=== PATIENT | male | born 1945 | race Caucasian/White ===

== ENCOUNTER 2020-11-05 10:22 | Inpatient (IN) | payer MEDICARE, OTHER ==
[~2020-11-05] VITALS: Ht 165.1 cm; Wt 73.5 kg
--- NOTE | 2020-11-05 11:10 | NUR ---
oiv from home to er bed 7. awake alert oriented x2. not in resp distress, breathing even and unlabored. brought in for cough, fever qand dizzyness. temp reported by ems 102. md was at the bedside. oral temp noted @ 100.7 orally upon reassessment. md was at the beds-[facility] for eval. orders received, noted and carried out. iv line established on l ac 18g, blood drawn and sent to lab. ptemt at bedside for ekg. pt on monitor
[2020-11-05 11:44] LABS: BASOPHILS % (AUTO) 0.2 % (0.0-2.0); HEMATOCRIT 43 % (39-51); HEMOGLOBIN 14.1 g/dL (13.5-17.5); LYMPHOCYTES # (AUTO) 1.2 /CMM (0.8-4.8); LYMPHOCYTES % (AUTO) 23.9 % (20.0-44.0); MEAN CORPUSCULAR HGB CONC 33 g/dl (31.0-36.0); MEAN CORPUSCULAR VOLUME 88 fL (80-96); MONOCYTES # (AUTO) 0.3 /CMM (0.1-1.30); MONOCYTES % (AUTO) 6.6 % (2.0-12.0); NEUTROPHILS # (AUTO) 3.3 /CMM (1.8-8.9); NEUTROPHILS % (AUTO) 69.3 % (43.0-81.0); PLATELET COUNT (AUTO) 118 /CMM (150-450); RED BLOOD CELL COUNT(AUTO) 4.89 MIL/uL (4.5-6.0); WHITE BLOOD COUNT (AUTO) 4.8 K/uL (4.3-11.0)
[2020-11-05 12:10] LABS: CARBON DIOXIDE 24 mmol/L (21-32); CHLORIDE 98 mmol/L (98-107); CREATININE 2.4 mg/dL (0.6-1.3); GLUCOSE 129 mg/dL (74-106); POTASSIUM 3.9 mmol/L (3.5-5.1); SODIUM SERUM 134 mmol/L (136-145); UREA NITROGEN, BLOOD 53 mg/dL (7-18)
[2020-11-05 12:15] LABS: ALANINE AMINOTRANSFERASE 35 U/L (12-78); ALBUMIN 3.1 g/dL (3.4-5.0); ALKALINE PHOSPHATASE 47 U/L (46-116); ASPARTATE AMINOTRANSFERASE 42 U/L (15-37); BILIRUBIN,DIRECT 0.1 mg/dL (0.0-0.2); BILIRUBIN,TOTAL 0.3 mg/dL (0.2-1.0); TOTAL PROTEIN, SERUM 7.6 g/dL (6.4-8.2)
--- NOTE | 2020-11-05 12:20 | NUR ---
PT PLACED ON O2 VIA NC FOR SATTING @ 92%
[2020-11-05] MEDS ORDERED: HYDROCODONE/APAP 5/325MG TABLET PO PRN (13:00)
[2020-11-05] MEDS ORDERED: IV NS 0.9% 250 ML IV ONE (13:00)
[2020-11-05] MEDS ORDERED: Z GUARD REMEDY 2 OZ OINT TP PRN (13:00)
[2020-11-05] MEDS ORDERED: MAGNESIUM HYDROXIDE 30 ML UDC PO PRN (13:00)
[2020-11-05] MEDS ORDERED: MAG HYDROX/AL HYDROX/SIMETH 30 ML UDC PO PRN (13:00)
[2020-11-05] MEDS ORDERED: ONDANSETRON HCL/PF 4 MG/2 ML VIAL IVP PRN (13:00)
[2020-11-05] MEDS ORDERED: MORPHINE SULFATE INJ 2 MG/ML DISP.SYRIN IV PRN (13:00)
[2020-11-05] MEDS ORDERED: FERR325T24 PO (13:02)
[2020-11-05] MEDS ORDERED: FENO145T21 PO (13:02)
[2020-11-05] MEDS ORDERED: ISOS60TA4 PO (13:02)
[2020-11-05] MEDS ORDERED: DONE10TA44 PO (13:02)
[2020-11-05] MEDS ORDERED: ROSU40TA23 PO (13:02)
[2020-11-05] MEDS ORDERED: ERGO500014 PO (13:02)
[2020-11-05] MEDS ORDERED: DOCU250C21 PO (13:02)
[2020-11-05] MEDS ORDERED: DICL75TA5 PO (13:02)
[2020-11-05] MEDS ORDERED: HYDR25TA4 PO (13:02)
[2020-11-05] MEDS ORDERED: ESCI10TA PO (13:02)
[2020-11-05] MEDS ORDERED: LOSA100T31 PO (13:02)
[2020-11-05] MEDS ORDERED: AMLO-213 PO (13:02)
--- NOTE | 2020-11-05 14:28 | NUR ---
CALLED FOR REPORT. ROOM NOT YET READY
--- NOTE | 2020-11-05 14:38 | NUR ---
PT DAUGHTER WAS UPDATED REGARDING PT.
[2020-11-05] MEDS ORDERED: VANCOMYCIN 1 GM in IV D5W 250 ML IV SCH (15:00)
[2020-11-05] MEDS ORDERED: PIPERACILLIN /TAZOBACTAM 3.375 G in IV D5W 50 ML IV SCH (16:00)
--- NOTE | 2020-11-05 16:00 | NUR ---
RN ADMITTING NOTES Received patient via gurney from ER, patient is A/Ox4, on NC @4L, tolerating well, no SOB reported, respirations even and unlabored, Telemonitor SR 83, LEFT AC 18 noted, patent, intact and flushed, Safety measures in place, call light in place, bed is locked in lowest position, will cont to monitor
--- NOTE | 2020-11-05 16:05 | NUR ---
pt transported to unit on [facility] with emt and rn at bedside w/ acls protocol. nad noted during transport. bedside report given to jocelyne hightower for itzel
[2020-11-05 16:30] VITALS: BP 135/88
[2020-11-05] MEDS: IV NS 0.9% 1,000 ML IV PRN (16:59)
--- NOTE | 2020-11-05 17:00 | NUR ---
Admitting Notes Received patient via gurney from ER, patient is A/Ox4, on NC @4L, tolerating well, no SOB reported, respirations even and unlabored, Telemonitor SR 78, R AC G 18 noted, patent, intact and flushed, Safety measures in place, call light in place, bed is locked in lowest position, will cont to monitor Addendum: 11/05/20 at 1736 by Pia Baugh RN DISREGARD THIS NOTE, WRONG PATIENT
--- NOTE | 2020-11-05 19:30 | NUR ---
REPORT GIVEN TO PM SHIFT RN FOR CLARITA
--- NOTE | 2020-11-05 19:30 | NUR ---
TILE MECHANIC HELPER NOTE: PATIENT RESTING IN BED, NO ACUTE DISTRESS NOTED. BREATHING EVEN AND UNLABORED, NO SOB NOTED. IV TO LAC IN PLACE. ISOLATION PRECAUTION OBSERVED. BED LOCKED AND IN LOWEST POSITION, CALL LIGHT IN REACH. WILL CONTINUE TO MONITOR.
--- NOTE | 2020-11-05 20:00 | NUR ---
FLY MAKER NOTE: PATIENT NOTED UNWITNESS FALL, PATIENT WAS TRYING TO GO TO THE BATHROOM AND SLIPPED. DENIES HITTING HEAD AND ABLE TO MOVE ALL EXTREMITIES WITHOUT DIFFICULT. PATIENT DENIES ANY PAIN AT THIS TIME. MD AWARE WITH NO NEW ORDERS. BED IN LOWEST POSITION, BED ALARM ON. CALL LIGHT IN REACH. WILL CONTINUE TO MONITOR.
[2020-11-05] MEDS: ACETAMINOPHEN 325 MG TABLET PO PRN (20:07)
[2020-11-05 20:10] VITALS: BP 140/96
[2020-11-05] MEDS: CEFTRIAXONE 1 G in IV D5W 50 ML IV SCH (21:34)
[2020-11-05] MEDS: AZITHROMYCIN 250 MG TABLET PO SCH (21:34)
[2020-11-05] MEDS: HEPARIN SODIUM, PORCINE 5000 UNITS/1 ML VIAL SQ SCH (21:35)
[2020-11-06] VITALS (7 sets, daily range): BP systolic 112–140; BP diastolic 60–95
--- NOTE | 2020-11-06 06:10 | NUR ---
SALES OPERATIONS NOTE: PATIENT RESTING IN BED, NO ACUTE DISTRESS NOTED. BREATHING EVEN AND UNLABORED, NO SOB NOTED. IV TO LAC IN PLACE. ISOLATION PRECAUTION OBSERVED. BED LOCKED AND IN LOWEST POSITION, CALL LIGHT IN REACH. WILL ENDORSE TO DAY NURSE TO CONTINUE WITH PLAN OF CARE.
[2020-11-06 06:13] LABS: BASOPHILS % (AUTO) 0.2 % (0.0-2.0); HEMATOCRIT 43 % (39-51); HEMOGLOBIN 14.7 g/dL (13.5-17.5); LYMPHOCYTES # (AUTO) 1.2 /CMM (0.8-4.8); LYMPHOCYTES % (AUTO) 24.8 % (20.0-44.0); MEAN CORPUSCULAR HGB CONC 34 g/dl (31.0-36.0); MEAN CORPUSCULAR VOLUME 87 fL (80-96); MONOCYTES # (AUTO) 0.3 /CMM (0.1-1.30); MONOCYTES % (AUTO) 7.3 % (2.0-12.0); NEUTROPHILS # (AUTO) 3.2 /CMM (1.8-8.9); NEUTROPHILS % (AUTO) 67.7 % (43.0-81.0); PLATELET COUNT (AUTO) 119 /CMM (150-450); RED BLOOD CELL COUNT(AUTO) 5.01 MIL/uL (4.5-6.0); WHITE BLOOD COUNT (AUTO) 4.7 K/uL (4.3-11.0)
[2020-11-06 06:16] LABS: ALANINE AMINOTRANSFERASE 34 U/L (12-78); ALBUMIN 3.1 g/dL (3.4-5.0); ALKALINE PHOSPHATASE 46 U/L (46-116); ASPARTATE AMINOTRANSFERASE 42 U/L (15-37); BILIRUBIN,TOTAL 0.4 mg/dL (0.2-1.0); CALCIUM, SERUM 9.2 mg/dL (8.5-10.1); CARBON DIOXIDE 24 mmol/L (21-32); CHLORIDE 101 mmol/L (98-107); GLUCOSE 111 mg/dL (74-106); MAGNESIUM 2.2 mg/dL (1.8-2.4); PHOSPHORUS 2.7 mg/dL (2.5-4.9); POTASSIUM 3.6 mmol/L (3.5-5.1); SODIUM SERUM 137 mmol/L (136-145); TOTAL PROTEIN, SERUM 7.7 g/dL (6.4-8.2); UREA NITROGEN, BLOOD 45 mg/dL (7-18)
[2020-11-06 06:22] LABS: CHOLESTEROL 159 mg/dL (<200); CREATINE KINASE, TOTAL 227 U/L (39-308); HDL CHOLESTEROL 44 mg/dL (40-60); LDL 85 mg/dL (0-99); THYROID STIMULATING HORMONE 0.452 uIU/mL (0.358-3.74); TRIGLYCERIDES 147 mg/dL (30-150)
--- NOTE | 2020-11-06 07:30 | NUR ---
RN OPENING NOTES RECEIVED PATIENT IN BED, A/OX3, WEAK, DENIES PAIN OR DISCOMFORT; ON 4L OF O2 THERAPY, TOLERATING WELL, SPO2 IS 93%, NO SOB NOTED, SR WITH 63 ON TELEMONITOR , CARDIAC DIET NOTED, IV LINE OON E AC. INTACT, PATENT AND FLUSHED, PATIENT IS ON COVID-19 ISOLATION, ALL PRECAUTIONS IN PLACE, SAFETY MEASURES IMPLEMENTED , BED IS WILVER, IN LOWEST POSITION, BED ALARM IS ON, CALL LIGHT IN REACH, WILL CONT TO MONITOR CLOSELY
[2020-11-06] MEDS: ACETAMINOPHEN 325 MG TABLET PO PRN (08:55)
[2020-11-06] MEDS: HEPARIN SODIUM, PORCINE 5000 UNITS/1 ML VIAL SQ SCH ×2 (08:57→20:54)
--- NOTE | 2020-11-06 11:13 | NUR ---
spoke with daughter jermaine qureshi to decide if they want to give convalescent plasma.
[2020-11-06] MEDS: DEXAMETHASONE SOD PHOSPHATE 10 MG/ML VIAL IV SCH (11:15)
--- NOTE | 2020-11-06 14:02 | NUR ---
patient covid positive relayed to md awaits convalescent plasma.
[2020-11-06 16:53] LABS: C-REACTIVE PROTEIN 7.9 mg/dL (0.0-0.9)
--- NOTE | 2020-11-06 19:30 | NUR ---
ENGRAVER BLOCK OPENING NOTE RECEIVED PATIENT ON ISOLATION FOR COVID. PATIENT IS IN BED. A/OX 3, ALBANIAN SPEAKING, ABLE TO MAKE BASIC NEEDS KNOWN. ON OXYGEN 4L/MIN VIA NASAL CANNULA, RESPIRATIONS ARE EVEN AND UNLABORED. NO S/S SOB NOTED. NO S/S OR C/O PAIN NOTED. EXTERNAL TELE MONITOR READS SINUS RHYTHM HR70S. IN NO APPARENT DISTRESS. IV ACCESS IN RAC#22 PATENT AND SALINE LOCKED. BED IS LOW AND LOCKED, HOB ELEVATED IN HIGH FOWLERS, SIDE RAILS UP X3, CALL LIGHT WITHIN REACH. WILL CONTINUE TO MONITOR.
[2020-11-06] MEDS: CEFTRIAXONE 1 G in IV D5W 50 ML IV SCH (20:53)
[2020-11-06] MEDS: AZITHROMYCIN 250 MG TABLET PO SCH (21:02)
[2020-11-07] VITALS: BP 133/90
[2020-11-07 04:00] VITALS: BP 143/91
[2020-11-07 06:01] LABS: BASOPHILS % (AUTO) 0.1 % (0.0-2.0); HEMATOCRIT 41 % (39-51); HEMOGLOBIN 13.9 g/dL (13.5-17.5); LYMPHOCYTES # (AUTO) 0.7 /CMM (0.8-4.8); LYMPHOCYTES % (AUTO) 14.5 % (20.0-44.0); MEAN CORPUSCULAR HGB CONC 34 g/dl (31.0-36.0); MEAN CORPUSCULAR VOLUME 86 fL (80-96); MONOCYTES # (AUTO) 0.4 /CMM (0.1-1.30); MONOCYTES % (AUTO) 7.6 % (2.0-12.0); NEUTROPHILS # (AUTO) 3.8 /CMM (1.8-8.9); NEUTROPHILS % (AUTO) 77.8 % (43.0-81.0); PLATELET COUNT (AUTO) 137 /CMM (150-450); RED BLOOD CELL COUNT(AUTO) 4.77 MIL/uL (4.5-6.0); WHITE BLOOD COUNT (AUTO) 4.9 K/uL (4.3-11.0)
--- NOTE | 2020-11-07 06:35 | NUR ---
CEO & FOUNDER CLOSING NOTE ISOLATION FOR COVID. RESTING IN BED. A/OX 3. ON OXYGEN 4L/MIN VIA NASAL CANNULA, NO RESP DISTRESS NOTED, NO C/O PAIN T/O SHIFT. EXTERNAL TELE MONITOR READS SINUS RHYTHM. NO DISTRESS. IV ACCESS MAINTAINED IN RAC#22. BED REMAINS LOW AND LOCKED, HOB ELEVATED IN HIGH FOWLERS, SIDE RAILS UP X3, CALL LIGHT WITHIN REACH. WILL ENDORSE TO NEXT SHIFT.
[2020-11-07] MEDS: IV NS 0.9% 1,000 ML IV PRN (06:49)
--- NOTE | 2020-11-07 07:05 | NUR ---
RN OPENING NOTE RECEIVED PT AWAKE, A/OX 3, LUXEMBOURGER SPEAKING BUT UNDERSTANDS CHINESE. ON O2 4L/MIN VIA NASAL CANNULA, SATURATING @92%. NO SOB NOTED. NO PAIN REPORTED AT THIS TIME. TELE MONITOR READS SINUS RHYTHM HR @60S. IV AT R AC#22 INTACT, PATENT AND FLUSHED. SAFETY MEASURES IN PLACE. BED LOCKED AND AT LOWEST POSITION, HOB ELEVATED, SIDE RAILS UP X3. CALL LIGHT WITHIN REACH. WILL CONTINUE TO MONITOR.
[2020-11-07 07:30] LABS: CREATINE KINASE, TOTAL 120 U/L (39-308); FERRITIN 2390 ng/mL (8-388)
[2020-11-07 08:00] VITALS: BP 129/84
[2020-11-07 08:12] LABS: PTH, INTACT 32 pg/mL (15-65)
[2020-11-07] MEDS: DEXAMETHASONE SOD PHOSPHATE 10 MG/ML VIAL IV SCH (09:24)
[2020-11-07] MEDS: HEPARIN SODIUM, PORCINE 5000 UNITS/1 ML VIAL SQ SCH ×2 (09:28→22:00)
[2020-11-07 11:39] LABS: CALCIUM, SERUM 8.7 mg/dL (8.5-10.1); CARBON DIOXIDE 24 mmol/L (21-32); CHLORIDE 103 mmol/L (98-107); CREATININE 1.9 mg/dL (0.6-1.3); GLUCOSE 168 mg/dL (74-106); MAGNESIUM 2.5 mg/dL (1.8-2.4); PHOSPHORUS 3.3 mg/dL (2.5-4.9); POTASSIUM 4.1 mmol/L (3.5-5.1); SODIUM SERUM 140 mmol/L (136-145); UREA NITROGEN, BLOOD 56 mg/dL (7-18)
[2020-11-07 12:00] VITALS: BP 134/93
[2020-11-07 15:07] LABS: *SPE A/G RATIO 0.7 (0.7-1.7); *SPE ALBUMIN 2.8 g/dL (2.9-4.4); *SPE ALPHA-1-GLOBULIN 0.3 g/dL (0.0-0.4); *SPE ALPHA-2-GLOBULIN 1.3 g/dL (0.4-1.0); *SPE BETA GLOBULIN 1.2 g/dL (0.7-1.3); *SPE GLOBULIN, TOTAL 3.9 g/dL (2.2-3.9); *SPE M-SPIKE Not Observed g/dL (Not Observed); *SPEGAMMA GLOBULIN 0.9 g/dL (0.4-1.8)
[2020-11-07 15:14] LABS: C-REACTIVE PROTEIN 11.3 mg/dL (0.0-0.9)
[2020-11-07 16:00] VITALS: BP 135/79
[2020-11-07] MEDS: FERROUS SULFATE (325 MG) 325 MG/TAB TABLET PO SCH (17:21)
[2020-11-07] MEDS: DOCUSATE SODIUM 250 MG CAPSULE PO SCH (17:22)
[2020-11-07 20:00] VITALS: BP 135/82
--- NOTE | 2020-11-07 20:03 | NUR ---
RN CLOSING NOTE PT RESTING IN BED. A/OX 3. ON O2 @4L/MIN VIA NASAL CANNULA. NO SOB OR ANY RESP DISTRESS NOTED. NO PAIN REPORTED AT THIS TIME. TELE MONITOR READS SINUS RHYTHM. IV IN RAC#22 INTACT, PATENT AND FLUSHED. SAFETY MEASURES IN PLACE. BED REMAINS LOCKED WITH SIDE RAILS UP X2. CALL LIGHT WITHIN REACH. WILL ENDORSE TO NIGHT NURSE FOR CLARITA.
--- NOTE | 2020-11-07 20:39 | NUR ---
MS RN: CONTINUITY OF CARE Patient in bed awake. On Oxygen 4L via NC. Right AC peripheral line leaking, will insert new peripheral line. No c/o pain, denies SOB. Contact/Droplet precaution maintained.
[2020-11-07] MEDS: AZITHROMYCIN 250 MG TABLET PO SCH (21:58)
[2020-11-07] MEDS: ATORVASTATIN 40 MG TABLET PO SCH (22:05)
[2020-11-07] MEDS: CEFTRIAXONE 1 G in IV D5W 50 ML IV SCH (22:05)
--- NOTE | 2020-11-07 22:07 | NUR ---
MS RN: ANTICOAGULANT H/H 13.9 PLT 137. No bleeding. Heparin injection given co-signed by LEE ANN Dey.
[2020-11-08 00:35] VITALS: BP 154/101
[2020-11-08 05:19] VITALS: BP 127/73
[2020-11-08] MEDS: IV NS 0.9% 1,000 ML IV PRN (05:47)
[2020-11-08 05:50] LABS: BASOPHILS % (AUTO) 0.1 % (0.0-2.0); HEMATOCRIT 43 % (39-51); HEMOGLOBIN 14.5 g/dL (13.5-17.5); LYMPHOCYTES # (AUTO) 0.7 /CMM (0.8-4.8); MEAN CORPUSCULAR HGB CONC 34 g/dl (31.0-36.0); MEAN CORPUSCULAR VOLUME 87 fL (80-96); MONOCYTES # (AUTO) 0.4 /CMM (0.1-1.30); MONOCYTES % (AUTO) 4.9 % (2.0-12.0); NEUTROPHILS # (AUTO) 7.8 /CMM (1.8-8.9); PLATELET COUNT (AUTO) 164 /CMM (150-450); WHITE BLOOD COUNT (AUTO) 8.9 K/uL (4.3-11.0)
[2020-11-08 06:11] LABS: CARBON DIOXIDE 22 mmol/L (21-32); CHLORIDE 104 mmol/L (98-107); CREATININE 1.6 mg/dL (0.6-1.3); GLUCOSE 132 mg/dL (74-106); POTASSIUM 3.9 mmol/L (3.5-5.1); SODIUM SERUM 137 mmol/L (136-145); UREA NITROGEN, BLOOD 48 mg/dL (7-18)
--- NOTE | 2020-11-08 06:25 | NUR ---
MS RN: END OF SHIFT REPORT Patient iIS a/o X3 Forgetful. Non productive cough, denies chest pain. Oxygen sat 96% on 2L via NC. IVF infusing, on IV Rocephin and PO Zithromax, afebrile. Contact/Droplet isolation with Eye shield protection maintained. Plan for Convalescent Plasma infusion, not available at this time per Nicki/lab. Will endorse to oncoming RN.
[2020-11-08 06:50] LABS: CREATINE KINASE, TOTAL 78 U/L (39-308); FERRITIN 2293 ng/mL (8-388)
--- NOTE | 2020-11-08 08:00 | NUR ---
RN OPENING NOTE Patient is resting in bed, A/O x3, showing no signs of acute distress or SOB, saturating 96% on 2L NC. Patient denies any pain or discomfort at this time. Patient is able to ambulate to bathroom with assistance. IV line is clean and intact flushing well. All patient needs met, all due medications given, patient kep clean and dry throughout shift. Bed is in lowest position, side rails x2 in upright position, call light is within reach, fall safety and aspiration precautions enforced. Will continue with plan of care.
[2020-11-08] MEDS: DOCUSATE SODIUM 250 MG CAPSULE PO SCH ×2 (09:08→16:10)
[2020-11-08] MEDS: DEXAMETHASONE SOD PHOSPHATE 10 MG/ML VIAL IV SCH (09:08)
[2020-11-08] MEDS: HYDROCHLOROTHIAZIDE 25 MG TABLET PO SCH (09:09)
[2020-11-08] MEDS: LOSARTAN POTASSIUM 50 MG TABLET PO SCH (09:09)
[2020-11-08] MEDS: ESCITALOPRAM OXALATE (10 MG) 10 MG TABLET PO SCH (09:09)
[2020-11-08] MEDS: ISOSORBIDE MONONITRATE (30MG) 30 MG TAB.SR.24H PO SCH (09:09)
[2020-11-08] MEDS: FERROUS SULFATE (325 MG) 325 MG/TAB TABLET PO SCH ×3 (09:10→16:10)
[2020-11-08] MEDS: DONEPEZIL 5 MG TABLET PO SCH (09:10)
[2020-11-08] MEDS: AMLODIPINE BESYLATE 10 MG TABLET PO SCH (09:10)
[2020-11-08] MEDS: FENOFIBRATE NANOCRYS (145 MG) 145 MG TABLET PO SCH (09:11)
[2020-11-08] MEDS: HEPARIN SODIUM, PORCINE 5000 UNITS/1 ML VIAL SQ SCH ×2 (09:12→20:58)
--- NOTE | 2020-11-08 16:00 | NUR ---
RN NOTE Patient stable on RA saturating 96%. f/u with lab, and conv. plasma is not ready yet d/t O-neg blood type.
--- NOTE | 2020-11-08 18:59 | NUR ---
RN CLOSING NOTE Patient is resting in bed, A/O x3, showing no signs of acute distress or SOB, saturating 96% on RA. Patient denies any pain or discomfort at this time. Patient is able to ambulate to bathroom with assistance. IV line is clean and intact flushing well. All patient needs met, all due medications given, patient kept clean and dry throughout shift. Bed is in lowest position, side rails x2 in upright position, call light is within reach, fall safety and aspiration precautions enforced. Will endorse to fast food shift lead for CLARITA.
--- NOTE | 2020-11-08 20:00 | NUR ---
RN OPENING NOTE: Patient in bed resting comfortably. Patient awake, alert, and oriented x3, malian speaking but understand some Czech. Patient on room air and breathing is equal and unlabored. No SOB or acute respiratory distress noted. Patient denies any pain or discomfort at this time. Safety measure in place, bed is in the lowest level, bed is locked, alarm is on, side rails x2 are up, and call light is within reach. Will continue to monitor.
[2020-11-08] MEDS: CEFTRIAXONE 1 G in IV D5W 50 ML IV SCH (20:58)
[2020-11-08] MEDS: ATORVASTATIN 40 MG TABLET PO SCH (21:00)
[2020-11-08] MEDS: AZITHROMYCIN 250 MG TABLET PO SCH (21:00)
--- NOTE | 2020-11-09 06:15 | NUR ---
Patient removed IV access. Inserted new IV access on left forearm, 22 gauge. Dry, intact, and patent.
--- NOTE | 2020-11-09 07:41 | NUR ---
MS RN OPEN NOTES PATIENT IS SLEEPING WITH NO SIGNS OF DISTRESS IN ROOM AIR. NO COMPLAIN OF PAIN AT THIS TIME. IV L ARM #22G RUNNING NS AT 75 ML/HR. SAFETY MEASURES ARE APPLIED, BED IS IN LOW POSITION SIDE RAILS UP X 2. CALL LIGHT WITHIN REACH WILL CONTINUE TO MONITOR.
--- NOTE | 2020-11-09 07:53 | NUR ---
RN CLOSING NOTE: Patient in bed resting comfortably. Patient breathing even and unlabored with no SOB or acute respiratory distress. All needs were met. Safety measures maintained. Bed is in the lowest level, bed is locked, alarm is on, side rails x2 are up, and call light is within reach. Endorsed to morning nurse.
[2020-11-09] MEDS: DOCUSATE SODIUM 250 MG CAPSULE PO SCH ×2 (09:53→16:14)
[2020-11-09] MEDS: ISOSORBIDE MONONITRATE (30MG) 30 MG TAB.SR.24H PO SCH (09:53)
[2020-11-09] MEDS: LOSARTAN POTASSIUM 50 MG TABLET PO SCH (09:53)
[2020-11-09] MEDS: DONEPEZIL 5 MG TABLET PO SCH (09:53)
[2020-11-09 09:54] LABS: BASOPHILS % (AUTO) 0.1 % (0.0-2.0); HEMATOCRIT 42 % (39-51); LYMPHOCYTES # (AUTO) 0.5 /CMM (0.8-4.8); LYMPHOCYTES % (AUTO) 6.1 % (20.0-44.0); MEAN CORPUSCULAR HGB CONC 33 g/dl (31.0-36.0); MEAN CORPUSCULAR VOLUME 87 fL (80-96); MONOCYTES # (AUTO) 0.3 /CMM (0.1-1.30); MONOCYTES % (AUTO) 3.7 % (2.0-12.0); NEUTROPHILS % (AUTO) 90.1 % (43.0-81.0); PLATELET COUNT (AUTO) 205 /CMM (150-450); RED BLOOD CELL COUNT(AUTO) 4.84 MIL/uL (4.5-6.0); WHITE BLOOD COUNT (AUTO) 8.8 K/uL (4.3-11.0)
[2020-11-09] MEDS: ESCITALOPRAM OXALATE (10 MG) 10 MG TABLET PO SCH (09:54)
[2020-11-09] MEDS: FERROUS SULFATE (325 MG) 325 MG/TAB TABLET PO SCH ×4 (09:54→16:14)
[2020-11-09] MEDS: FENOFIBRATE NANOCRYS (145 MG) 145 MG TABLET PO SCH (09:54)
[2020-11-09] MEDS: AMLODIPINE BESYLATE 10 MG TABLET PO SCH (09:54)
[2020-11-09] MEDS: DEXAMETHASONE SOD PHOSPHATE 10 MG/ML VIAL IV SCH (09:55)
[2020-11-09] MEDS: HYDROCHLOROTHIAZIDE 25 MG TABLET PO SCH (09:55)
[2020-11-09] MEDS: HEPARIN SODIUM, PORCINE 5000 UNITS/1 ML VIAL SQ SCH ×2 (09:58→21:23)
[2020-11-09 10:10] LABS: CALCIUM, SERUM 9.1 mg/dL (8.5-10.1); CARBON DIOXIDE 23 mmol/L (21-32); CHLORIDE 105 mmol/L (98-107); CREATININE 1.5 mg/dL (0.6-1.3); GLUCOSE 116 mg/dL (74-106); MAGNESIUM 2.3 mg/dL (1.8-2.4); PHOSPHORUS 3.1 mg/dL (2.5-4.9); POTASSIUM 3.7 mmol/L (3.5-5.1); SODIUM SERUM 138 mmol/L (136-145); UREA NITROGEN, BLOOD 46 mg/dL (7-18)
[2020-11-09] MEDS: IV NS 0.9% 1,000 ML IV PRN (10:19)
--- NOTE | 2020-11-09 19:30 | NUR ---
MS RN OPENING NOTES RECEIVED PATIENT IN BED SLEEPING WITH NO SIGNS OF DISTRESS ON ROOM AIR. NO COMPLAIN OF PAIN AT THIS TIME. IV R FA #20G RUNNING NS AT 75 ML/HR. SAFETY MEASURES ARE IN PLACE, BED IS IN LOW POSITION SIDE RAILS UP X 3. CALL LIGHT WITH IN REACH. NO SIGNS OF SOB OR RESPIRATORY DISTRESS NOTED. WILL CONTINUE TO MONITOR THROUGH OUT SHIFT.
--- NOTE | 2020-11-09 19:33 | NUR ---
MS RN CLOSING NOTES PATIENT IS SLEEPING WITH NO SIGNS OF DISTRESS IN ROOM AIR. NO COMPLAIN OF PAIN AT THIS TIME. IV R FA #20G RUNNING NS AT 75 ML/HR. SAFETY MEASURES ARE APPLIED, BED IS IN LOW POSITION SIDE RAILS UP X 2. CALL LIGHT WITHIN REACH WILL CONTINUE TO MONITOR. PATIENT KEPT CLEAN AND DRY. ALL NEEDS, CARE, TREATMENT,AND MEDICATIONS WERE ADMINISTERED ANTICIPATED PER ORDER. SAFETY MEASURES ARE APPLIED, BED IS IN LOW POSITION SIDE RAILS UP X 2. CALL LIGHT WITHIN REACH WILL ENDORSE TO THE TECHNICAL SPECIALIST NURSE.
[2020-11-09] MEDS: ATORVASTATIN 40 MG TABLET PO SCH (21:22)
[2020-11-09] MEDS: CEFTRIAXONE 1 G in IV D5W 50 ML IV SCH (21:22)
[2020-11-09] MEDS: AZITHROMYCIN 250 MG TABLET PO SCH (21:30)
--- NOTE | 2020-11-10 06:35 | NUR ---
MS/RN CLOSING NOTES PATIENT IN BED SLEEPING, ALERT AND ORIENTED X 3. PATIENT SHOWS NO SIGNS OF SOB OR RESPIRATORY DISTRESS NOTED. BREATHING IS EVEN AND UNLABORED. PATIENT CAN AMBULATE TO BATHROOM WITH ASSIST. IV ACCESS IS IN PLACE RIGHT FA #20G INTACT RUNNING NS AT 75 ML/HR. ALL NEEDS HAVE BEEN MET. SAFETY MEASURES ARE IN PLACE, BED IS LOCKED AND PLACED IN THE LOWE POSITION, SIDE RAILS UP X 2. CALL LIGHT IS WITHIN REACH. WILL ENDORSE CARE TO DAY SHIFT NURSE.
[2020-11-10 06:58] LABS: CALCIUM, SERUM 9.2 mg/dL (8.5-10.1); CARBON DIOXIDE 22 mmol/L (21-32); CHLORIDE 105 mmol/L (98-107); CREATININE 1.6 mg/dL (0.6-1.3); GLUCOSE 123 mg/dL (74-106); POTASSIUM 3.8 mmol/L (3.5-5.1); SODIUM SERUM 140 mmol/L (136-145); UREA NITROGEN, BLOOD 46 mg/dL (7-18)
--- NOTE | 2020-11-10 07:30 | NUR ---
RN OPENING NOTE PT IN BED AWAKE IN SEMIFOWLERS, ON NC 2LPM, NO SIGNS OF RESP DISTRESS OR SOB, BREATHING EVEN AND UNLABORED. PT A/Ox3 AND STATES NO PAIN. PT KHMER SPEAKING, BUT ABLE TO COMMUNICATE IN UZBEK. PT SKIN INTACT, HAS RFA #20 THAT IS NO CURRENTLY INFUSING NS @ 75ML/HR. WILL CONTINUE INFUSION SHORTLY. PT SAFETY PRECAUTIONS IN PLACE, BED LOCKED AND IN LOWEST POSITION, BED ALARM ON, SR UP x2, CALL LIGHT WITHIN REACH. WILL CONTINUE TO MONITOR
[2020-11-10 08:00] VITALS: BP 141/89
--- NOTE | 2020-11-10 08:15 | NUR ---
RN NOTE PT ON NC 2LPM SATING AT 89% AT 0800, BUT ALSO DID NOT HAVE HIS NC ON AT TIME OF VITALS. PUT NC BACK ON AND TITRATED TO 6%. EXPLAINED TO PT IN SIMPLE TERMS THE IMPORTANCE OF KEEPING NC ON. SPO2 AT 0810 INCREASED TO 91%, PER CHARGE NURSE JW, THIS IS ACCEPTABLE. NO SIGNS OR RESP DISTRESS OR SOB, BREATHING UNLABORED AND EVEN. WILL CONTINUE TO MONITOR
[2020-11-10] MEDS: DOCUSATE SODIUM 250 MG CAPSULE PO SCH ×2 (09:46→17:44)
[2020-11-10] MEDS: DEXAMETHASONE SOD PHOSPHATE 10 MG/ML VIAL IV SCH (09:46)
[2020-11-10] MEDS: FENOFIBRATE NANOCRYS (145 MG) 145 MG TABLET PO SCH (09:46)
[2020-11-10] MEDS: DONEPEZIL 5 MG TABLET PO SCH (09:46)
[2020-11-10] MEDS: ESCITALOPRAM OXALATE (10 MG) 10 MG TABLET PO SCH (09:46)
[2020-11-10] MEDS: FERROUS SULFATE (325 MG) 325 MG/TAB TABLET PO SCH ×3 (09:46→17:44)
[2020-11-10] MEDS: HYDROCHLOROTHIAZIDE 25 MG TABLET PO SCH (09:48)
[2020-11-10] MEDS: AMLODIPINE BESYLATE 10 MG TABLET PO SCH (09:49)
[2020-11-10] MEDS: HEPARIN SODIUM, PORCINE 5000 UNITS/1 ML VIAL SQ SCH ×2 (09:52→21:51)
[2020-11-10] MEDS: LOSARTAN POTASSIUM 50 MG TABLET PO SCH (10:47)
[2020-11-10] MEDS: ISOSORBIDE MONONITRATE (30MG) 30 MG TAB.SR.24H PO SCH (10:47)
--- NOTE | 2020-11-10 11:30 | NUR ---
RN NOTE SPOKE WITH BOTH OF PT'S DAUGHTERS IRAJ ([phone]) REGARDING PT'S CONDITION. ALL QUESTIONS ANSWERED TO THEIR COMPLETE SATISFACTION.
--- NOTE | 2020-11-10 12:30 | NUR ---
RN NOTE PT RESTING IN BED COMFORTABLY. PT HAS BEEN SATING 91-94% ON NC 6LPM. WILL CONTINUE TO MONITOR
[2020-11-10] MEDS: IV NS 0.9% 1,000 ML IV PRN (15:13)
[2020-11-10 16:00] VITALS: BP 112/57
--- NOTE | 2020-11-10 16:00 | NUR ---
RN NOTE SPOKE WITH DAUGHTER NELDA. SHE STATES THAT WHEN PT IS DISCHARGED SHE WOULD [place] [facility] [place] [id number] [facility] [address]
--- NOTE | 2020-11-10 18:15 | NUR ---
RN NOTE PT DID NOT EAT MUCH FOOD TODAY, STATES HE IS NOT HUNGRY EVEN WHEN OFFERED TO HELP FEED HIM. MESSAGED TALA FRANCOIS NP, ASKING FOR AN ORDER FOR APPETITE STIMULANT. WILL ENDORSE F/U WITH ONCOMING NURSE
--- NOTE | 2020-11-10 19:00 | NUR ---
RN CLOSING NOTE PT IN STABLE CONDITION. NO SIGNS OF RESP DISTRESS OR SOB, BREATHING EVEN AND UNLABORED. PT RESTING COMFORTABLY IN BED WITH NS INFUSING AT 75ML/HR IN RFA #20 WITH NO ISSUES. PT SAFETY PRECAUTIONS IN PLACE, BED LOCKED AND IN LOWEST POSITION, BED ALARM ON, SR UP x2, CALL LIGHT WITHIN REACH. WILL ENDORSE CLARITA TO ONCOMING NURSE
--- NOTE | 2020-11-10 19:20 | NUR ---
RN opening notes Received Pt from morning nurse. Pt is resting in bed comfortably. Pt is alert and orientedX3. Pt speaks Bahraini and able to make needs known. Respiration on 6 L NC. No SOB. No S/S of distress noted. IV sites at RFA# 20 is clean, intact and infusing well NS @ 75 ml/hr. Safety precautions is maintained. Bed at low position, brakes locked, HOB elevated, side rails upX2 and call light is within reach. Will continue to monitor.
[2020-11-10 20:00] VITALS: BP 122/73
[2020-11-10] MEDS: ATORVASTATIN 40 MG TABLET PO SCH (21:49)
[2020-11-10] MEDS: CEFTRIAXONE 1 G in IV D5W 50 ML IV SCH (21:49)
--- NOTE | 2020-11-10 23:35 | NUR ---
RN notes Called and spoke with blood bank [facility] regarding Pt's convalescent plasma. Also sent fax MD order form for convalescent plasma to blood bank. Ruddy mentioned it's special order from [facility] and it takes awhile. Charge nurse is aware and informed.
[2020-11-11 04:00] VITALS: BP 137/91
--- NOTE | 2020-11-11 07:00 | NUR ---
RN closing notes Pt is resting in bed comfortably. Pt is alert and orientedX3. Respiration on 6 L NC. No SOB. No S/S of distress noted. VS is stable. Afebrile. IV sites at RFA# 20 is clean, intact, flushes well and SL. Routine meds were given as ordered. Kept Pt clean, dry and comfortable. All needs met and attended. Safety precautions is maintained. Bed at low position, brakes locked, HOB elevated, side rails upX2 and call light is within reach. Will endorse to morning nurse for CLARITA.
--- NOTE | 2020-11-11 08:00 | NUR ---
MS RN OPENING NOTES Bedside endorsement done. Pt is in bed resting, alert and oriented X2-3, Khmer-speaker. Breathing even and unlabored, currently on O2 at 6lpm via NC. IV line on RFA #20 intact and patent. Safety precautions in place: bed locked and on lowest position, side rails up X2, call light is within reach. Will continue to monitor.
[2020-11-11] MEDS: FENOFIBRATE NANOCRYS (145 MG) 145 MG TABLET PO SCH (08:37)
[2020-11-11] MEDS: DOCUSATE SODIUM 250 MG CAPSULE PO SCH ×2 (08:37→16:13)
[2020-11-11] MEDS: FERROUS SULFATE (325 MG) 325 MG/TAB TABLET PO SCH ×3 (08:37→16:13)
[2020-11-11] MEDS: HYDROCHLOROTHIAZIDE 25 MG TABLET PO SCH (08:37)
[2020-11-11] MEDS: ISOSORBIDE MONONITRATE (30MG) 30 MG TAB.SR.24H PO SCH (08:37)
[2020-11-11] MEDS: ESCITALOPRAM OXALATE (10 MG) 10 MG TABLET PO SCH (08:37)
[2020-11-11] MEDS: DONEPEZIL 5 MG TABLET PO SCH (08:38)
[2020-11-11] MEDS: LOSARTAN POTASSIUM 50 MG TABLET PO SCH (08:38)
[2020-11-11] MEDS: DEXAMETHASONE SOD PHOSPHATE 10 MG/ML VIAL IV SCH (08:39)
[2020-11-11] MEDS: AMLODIPINE BESYLATE 10 MG TABLET PO SCH (08:39)
[2020-11-11] MEDS: HEPARIN SODIUM, PORCINE 5000 UNITS/1 ML VIAL SQ SCH ×2 (08:40→21:11)
[2020-11-11] MEDS ORDERED: ERGOCALCIFEROL (VITAMIN D 2) 50,000 UNIT CAPSULE PO SCH (09:00)
[2020-11-11 16:32] LABS: CARBON DIOXIDE 25 mmol/L (21-32); CHLORIDE 102 mmol/L (98-107); CREATININE 1.6 mg/dL (0.6-1.3); GLUCOSE 162 mg/dL (74-106); SODIUM SERUM 136 mmol/L (136-145); UREA NITROGEN, BLOOD 52 mg/dL (7-18)
--- NOTE | 2020-11-11 19:05 | NUR ---
MS RN CLOSING NOTES Pt is in awake and verbally responsive, alert and oriented X2-3, Qatari-speaker but understands some Sao Tomean. Breathing even and unlabored, currently on O2 at 6lpm via NC, no sob nor respiratory distress. IV line on RFA #20 intact and patent. Received food from family, able to eat banana. Safety precautions maintained: bed locked and on lowest position, side rails up X2, call light is within reach. Will endorse to shift boss rn for itzel.
--- NOTE | 2020-11-11 19:30 | NUR ---
RN NOTES PT IS A/OX3, NO SOB OR ANY RESPIRATORY DISTRESS. BREATHING EVEN AND UNLABORED. ON O2 @ 6LPM VIA NASAL CANNULA, O2 SAT 92%. IV LINE ON RFA #20, PATENT AND INTACT. DENIES ANY PAIN OR DISCOMFORT. BED LOCKED AND IN LOWEST POSITION. SIDE RAILS UP X2. ALL SAFETY MEASURES IMPLEMENTED. CALL LIGHT WITHIN REACH. WILL CONTINUE TO MONITOR.
[2020-11-11 20:00] VITALS: BP 122/76
[2020-11-11] MEDS: CEFTRIAXONE 1 G in IV D5W 50 ML IV SCH (21:09)
[2020-11-11] MEDS: ATORVASTATIN 40 MG TABLET PO SCH (21:10)
[2020-11-12] VITALS: BP 101/72
[2020-11-12 04:00] VITALS: BP 133/85
--- NOTE | 2020-11-12 06:42 | NUR ---
RN NOTES PT IS A/OX3, NO SOB OR ANY RESPIRATORY DISTRESS. BREATHING EVEN AND UNLABORED. ON O2 @ 6LPM VIA NASAL CANNULA, O2 SAT 94%. IV LINE ON RIGHT HAND #20, PATENT AND INTACT. DENIES ANY PAIN OR DISCOMFORT. NO SIGNIFICANT CHANGES DURING SHIFT. BED LOCKED AND IN LOWEST POSITION. SIDE RAILS UP X2. ALL SAFETY MEASURES IMPLEMENTED. CALL LIGHT WITHIN REACH. WILL ENDORSE TO NEXT SHIFT.
--- NOTE | 2020-11-12 07:30 | NUR ---
RECEIVED PATIENT IN BED. NO ACUTE DISTRESS NOTED. PATIENT ALERT & ORIENTED X3. PATIENT ON 6L NASAL CANULA, SATURATING WELL. PATIENT RIGHT HAND IV ACCESS INTACT, PATENT. PATIENT SAFETY MEASURES MAINTAINED. CALL LIGHT WITHIN REACH. WILL CONTINUE TO MONITOR.
[2020-11-12] MEDS: LOSARTAN POTASSIUM 50 MG TABLET PO SCH (09:00)
[2020-11-12] MEDS: ISOSORBIDE MONONITRATE (30MG) 30 MG TAB.SR.24H PO SCH (09:00)
[2020-11-12] MEDS: HYDROCHLOROTHIAZIDE 25 MG TABLET PO SCH (09:00)
[2020-11-12] MEDS: AMLODIPINE BESYLATE 10 MG TABLET PO SCH (09:00)
[2020-11-12] MEDS: DONEPEZIL 5 MG TABLET PO SCH (09:05)
[2020-11-12] MEDS: DOCUSATE SODIUM 250 MG CAPSULE PO SCH ×2 (09:07→16:36)
[2020-11-12] MEDS: FERROUS SULFATE (325 MG) 325 MG/TAB TABLET PO SCH ×3 (09:07→16:36)
[2020-11-12] MEDS: ESCITALOPRAM OXALATE (10 MG) 10 MG TABLET PO SCH (09:07)
[2020-11-12] MEDS: FENOFIBRATE NANOCRYS (145 MG) 145 MG TABLET PO SCH (09:07)
[2020-11-12] MEDS: DEXAMETHASONE SOD PHOSPHATE 10 MG/ML VIAL IV SCH (09:10)
[2020-11-12] MEDS: HEPARIN SODIUM, PORCINE 5000 UNITS/1 ML VIAL SQ SCH (09:12)
[2020-11-12 13:03] LABS: BASOPHILS % (AUTO) 0.1 % (0.0-2.0); EOSINOPHILS % (AUTO) 0.2 % (0.0-6.0); HEMATOCRIT 41 % (39-51); HEMOGLOBIN 13.7 g/dL (13.5-17.5); LYMPHOCYTES # (AUTO) 0.6 /CMM (0.8-4.8); LYMPHOCYTES % (AUTO) 8.7 % (20.0-44.0); MEAN CORPUSCULAR HGB CONC 33 g/dl (31.0-36.0); MEAN CORPUSCULAR VOLUME 87 fL (80-96); MONOCYTES # (AUTO) 0.5 /CMM (0.1-1.30); MONOCYTES % (AUTO) 6.7 % (2.0-12.0); NEUTROPHILS # (AUTO) 5.7 /CMM (1.8-8.9); NEUTROPHILS % (AUTO) 84.3 % (43.0-81.0); PLATELET COUNT (AUTO) 271 /CMM (150-450); RED BLOOD CELL COUNT(AUTO) 4.74 MIL/uL (4.5-6.0); WHITE BLOOD COUNT (AUTO) 6.8 K/uL (4.3-11.0)
[2020-11-12 13:38] LABS: D-DIMER 2.3 mg/L(FEU (0.17-0.50)
[2020-11-12 14:28] LABS: ALANINE AMINOTRANSFERASE 42 U/L (12-78); ALBUMIN 2.3 g/dL (3.4-5.0); ALKALINE PHOSPHATASE 47 U/L (46-116); ASPARTATE AMINOTRANSFERASE 32 U/L (15-37); BILIRUBIN,TOTAL 0.5 mg/dL (0.2-1.0); CALCIUM, SERUM 9.2 mg/dL (8.5-10.1); CARBON DIOXIDE 22 mmol/L (21-32); CHLORIDE 102 mmol/L (98-107); CREATININE 1.5 mg/dL (0.6-1.3); GLUCOSE 89 mg/dL (74-106); MAGNESIUM 2.2 mg/dL (1.8-2.4); PHOSPHORUS 2.3 mg/dL (2.5-4.9); POTASSIUM 3.7 mmol/L (3.5-5.1); SODIUM SERUM 136 mmol/L (136-145); UREA NITROGEN, BLOOD 47 mg/dL (7-18)
[2020-11-12 16:00] VITALS: BP 145/82
[2020-11-12] MEDS ORDERED: NEUTRA PHOS 1 POWD.PACKET PO ONE (16:30)
--- NOTE | 2020-11-12 18:31 | NUR ---
PATIENT IN BED. NO ACUTE DISTRESS NOTED. PATIENT ALERT & ORIENTED X3. PATIENT ON 6L NASAL CANULA, SATURATING WELL. PATIENT RIGHT HAND IV ACCESS INTACT, PATENT. PATIENT SAFETY MEASURES MAINTAINED. CALL LIGHT WITHIN REACH. WILL ENDORSE PLAN OF CARE TO ONCOMING SHIFT
[2020-11-12] MEDS ORDERED: REMDESIVIR (CHARGED) 200 MG, *LOADING DOSE 1 EA in IV NS 0.9% 210 ML IV ONE (20:00)
[2020-11-13] VITALS: BP 153/90
[2020-11-13 00:03] LABS: CREATINE KINASE, TOTAL 89 U/L (39-308); FERRITIN 4489 ng/mL (8-388)
[2020-11-13] MEDS: ATORVASTATIN 40 MG TABLET PO SCH ×2 (00:14→21:36)
--- NOTE | 2020-11-13 06:26 | NUR ---
NADIA SPEAKING WITH SOME UZBEK UNDERSTANDING BED ALARM ON FOR HIS SAFETY D/T HE GETS OOB UNASSISTED AND WILL START TO WALK TO THE BATHROOM AND HE IS UNSTEADY HE WILL NOT WAIT FOR A NURSE TO COME ASSIST UP TO THE BATHROOM 2X THIS NIGHT ASSISTED AMBULATES W/O SHOWING NO SOB WHEN IN BED SATS 94% 6 LITERS N/C
--- NOTE | 2020-11-13 07:40 | NUR ---
RN OPENING NOTES RECEIVED PATIENT IN BED. NO ACUTE DISTRESS NOTED. PATIENT ALERT & ORIENTED X3.SYRIAC SPEAKING ONLY. PATIENT ON 6L NASAL CANULA, SATURATING WELL. PATIENT RIGHT HAND IV ACCESS INTACT, PATENT. PATIENT SAFETY MEASUREMENTS ARE IMPLEMENTED PER HOSPITAL POLICY MAINTAINED. BED IS IN THE LOWEST POSITION, SIDE RAILS ARE UP X2.CALL LIGHT WITHIN REACH. WILL CONTINUE TO MONITOR.
[2020-11-13 07:56] LABS: BASOPHILS % (AUTO) 0.1 % (0.0-2.0); EOSINOPHILS % (AUTO) 0.3 % (0.0-6.0); HEMATOCRIT 43 % (39-51); HEMOGLOBIN 14.5 g/dL (13.5-17.5); LYMPHOCYTES # (AUTO) 0.7 /CMM (0.8-4.8); LYMPHOCYTES % (AUTO) 9.9 % (20.0-44.0); MEAN CORPUSCULAR HGB CONC 34 g/dl (31.0-36.0); MEAN CORPUSCULAR VOLUME 88 fL (80-96); MONOCYTES # (AUTO) 0.4 /CMM (0.1-1.30); MONOCYTES % (AUTO) 6.5 % (2.0-12.0); NEUTROPHILS # (AUTO) 5.6 /CMM (1.8-8.9); NEUTROPHILS % (AUTO) 83.2 % (43.0-81.0); PLATELET COUNT (AUTO) 281 /CMM (150-450); RED BLOOD CELL COUNT(AUTO) 4.93 MIL/uL (4.5-6.0); WHITE BLOOD COUNT (AUTO) 6.8 K/uL (4.3-11.0)
[2020-11-13 08:00] VITALS: BP 94/54
[2020-11-13 08:25] LABS: ALANINE AMINOTRANSFERASE 41 U/L (12-78); ALBUMIN 2.3 g/dL (3.4-5.0); ALKALINE PHOSPHATASE 51 U/L (46-116); ASPARTATE AMINOTRANSFERASE 35 U/L (15-37); BILIRUBIN,DIRECT 0.2 mg/dL (0.0-0.2); BILIRUBIN,TOTAL 0.5 mg/dL (0.2-1.0); CALCIUM, SERUM 9.4 mg/dL (8.5-10.1); CARBON DIOXIDE 20 mmol/L (21-32); CHLORIDE 102 mmol/L (98-107); CREATININE 1.5 mg/dL (0.6-1.3); GLUCOSE 75 mg/dL (74-106); POTASSIUM 3.7 mmol/L (3.5-5.1); SODIUM SERUM 137 mmol/L (136-145); TOTAL PROTEIN, SERUM 7.2 g/dL (6.4-8.2); UREA NITROGEN, BLOOD 42 mg/dL (7-18)
[2020-11-13 08:44] LABS: FERRITIN 4786 ng/mL (8-388)
[2020-11-13 08:46] LABS: C-REACTIVE PROTEIN 15.4 mg/dL (0.0-0.9)
[2020-11-13] MEDS: DEXAMETHASONE SOD PHOSPHATE 10 MG/ML VIAL IV SCH (08:56)
[2020-11-13] MEDS: HYDROCHLOROTHIAZIDE 25 MG TABLET PO SCH (08:57)
[2020-11-13] MEDS: DONEPEZIL 5 MG TABLET PO SCH (08:57)
[2020-11-13] MEDS: ISOSORBIDE MONONITRATE (30MG) 30 MG TAB.SR.24H PO SCH (08:57)
[2020-11-13] MEDS: FENOFIBRATE NANOCRYS (145 MG) 145 MG TABLET PO SCH (08:58)
[2020-11-13] MEDS: AMLODIPINE BESYLATE 10 MG TABLET PO SCH (08:58)
[2020-11-13] MEDS: DOCUSATE SODIUM 250 MG CAPSULE PO SCH ×2 (08:58→17:00)
[2020-11-13] MEDS: FERROUS SULFATE (325 MG) 325 MG/TAB TABLET PO SCH ×3 (08:58→17:00)
[2020-11-13] MEDS: LOSARTAN POTASSIUM 50 MG TABLET PO SCH (08:58)
[2020-11-13] MEDS: ESCITALOPRAM OXALATE (10 MG) 10 MG TABLET PO SCH (08:59)
--- NOTE | 2020-11-13 09:00 | NUR ---
RN NOTES PT HAS BP OF 94/54 HELD BLOOD PRESSURE MEDS.
--- NOTE | 2020-11-13 09:15 | NUR ---
RN NOTES SAID WILL TAKE OTHER MEDS LATER
[2020-11-13 16:00] VITALS: BP 118/80
--- NOTE | 2020-11-13 19:18 | NUR ---
RN CLOSING NOTES PATIENT IN BED SLEEPING. NO ACUTE DISTRESS NOTED. PATIENT ALERT & ORIENTED X3.ESTONIAN SPEAKING ONLY. REFUSED MOST OF THE MEDS TODAY . PATIENT ON 6L NASAL CANULA, SATURATING WELL. PATIENT RIGHT HAND IV ACCESS INTACT, PATENT. PATIENT SAFETY MEASUREMENTS ARE IMPLEMENTED PER HOSPITAL POLICY MAINTAINED. BED IS IN THE LOWEST POSITION, SIDE RAILS ARE UP X2.CALL LIGHT WITHIN REACH. WILL ENDORSE TO PM NURSE FOR CLARITA.
[2020-11-13 20:00] VITALS: BP 130/81
[2020-11-13] MEDS ORDERED: REMDESIVIR (CHARGED) 100 MG in IV NS 0.9% 230 ML IV SCH (20:00)
--- NOTE | 2020-11-13 21:01 | NUR ---
MS-1/VM[employer] CONSULTANT PT REFUSING PHYSICAL ASSESSMENT. PT IV INFILTRATED. MICHELLE MEYER RN ATTEMPTED TO PLACE NEW LINE PT IS TELLING US TO "FUCK OFF" AND THAT HE "DOESN'T NEED ANY MEDICATION" PT EDUCATED ABOUT IMPORTANCE OF IV THERAPY RELATED TO HIS DIAGNOSIS OF COVID-19. PT DOESN'T CARE AND PULLED THE COVERS OVER HIS HEAD. DR. SHANNON MADE AWARE OF PT NONCOMPLIANCE. WILL CONTINUE TO MONITOR.
[2020-11-14 04:00] VITALS: BP 138/81
--- NOTE | 2020-11-14 08:00 | NUR ---
manager registration notes Resident is alert /oriented with forgetfulness. He is breathing even and unlabored. Patient did not c/o sob. 02 sat 93% room air. Safety and fall precautions in place. Bed is in lowest position. Call light within reach.
[2020-11-14] MEDS: DONEPEZIL 5 MG TABLET PO SCH (09:00)
[2020-11-14] MEDS: DEXAMETHASONE SOD PHOSPHATE 10 MG/ML VIAL IV SCH (09:00)
[2020-11-14] MEDS: DOCUSATE SODIUM 250 MG CAPSULE PO SCH ×2 (09:00→17:00)
[2020-11-14] MEDS: ESCITALOPRAM OXALATE (10 MG) 10 MG TABLET PO SCH (09:00)
[2020-11-14] MEDS: FENOFIBRATE NANOCRYS (145 MG) 145 MG TABLET PO SCH (09:00)
[2020-11-14] MEDS: FERROUS SULFATE (325 MG) 325 MG/TAB TABLET PO SCH ×3 (09:00→17:00)
--- NOTE | 2020-11-14 10:30 | NUR ---
MED SURG1 RN NOTES Patient offered all his morning medications. Patient took the following medications Cozaar, hydrodiuril, imdur and norvasc and refused the rest of his 9 am medications
[2020-11-14] MEDS: LOSARTAN POTASSIUM 50 MG TABLET PO SCH (11:12)
[2020-11-14] MEDS: ISOSORBIDE MONONITRATE (30MG) 30 MG TAB.SR.24H PO SCH (11:13)
[2020-11-14] MEDS: HYDROCHLOROTHIAZIDE 25 MG TABLET PO SCH (11:14)
[2020-11-14] MEDS: AMLODIPINE BESYLATE 10 MG TABLET PO SCH (11:15)
--- NOTE | 2020-11-14 11:54 | NUR ---
PT REFUSE MOST PO MEDS, AND REFUSES NEW IV INSERTION. PT REQUESTS TO LEAVE. FAMILY NOTIFIED. MD AUSTIN AWARE, STATES PT CAN GO AMA. PT DAUGHTER BINDU STATES THAT SHE IS IN CONTACT WITH MECHANICAL FITTER TIFFANI , LOOKING FOR POSSIBLE PLACEMENT AT [facility]. TIFFANI TO CONTACT MD AUSTIN.
[2020-11-14 12:00] VITALS: BP 118/78
--- NOTE | 2020-11-14 14:41 | NUR ---
DC PLANNING DISCUSSED WITH TIFFANI REED DIPPER. PT FAMILY CONSIDERING DC TO HOME WITH HOME HEALTH. PER MD AUSTIN, PT NOT TO BE DC TODAY. PT TODAY REFUSING MEDS AND INTERVENTIONS, NO IVF ADMIN DUE TO PT NOT CONSENTING TO NEW IV START.
--- NOTE | 2020-11-14 19:00 | NUR ---
MS RN NOTES Patient remains on room air with 02 sat 93% . No respiratory distress noted. Patient's skin remains intact. Patient with right hand 20 gauze IV infiltrated. Patient non compliant with re insertion. Patient refused most PO meds during shift. Daughter aware and MD Page aware. Case management aware with possibility of discharge to home in process.Bed in lowest position. Call light with in reach. Endorsed to oncoming RN for CLARITA.
--- NOTE | 2020-11-14 19:45 | NUR ---
MS RN NOTES RECEIVED ON BED SLEEPING,COVERING HIMSELF WITH BLANKET.NO SOB,NON COMPLIANT WITH CARE.REFUSED IV ACCESS RE INSERTION.PER REPORT,HE'S REFUSED MOSTLY ALL HIS MEDICATIONS.ISOLATION FOR COVID 19 POSITIVE.CALL LIGHT IN REACH,NEEDS ANTICIPATED.
--- NOTE | 2020-11-14 20:00 | NUR ---
MS RN NOTES REFUSED VITAL SIGN AT THIS TIME
[2020-11-14] MEDS: ATORVASTATIN 40 MG TABLET PO SCH (22:00)
--- NOTE | 2020-11-14 22:00 | NUR ---
MS RN NOTES REFUSED HIS PO LIPITOR.
[2020-11-15 04:00] VITALS: BP 133/78
--- NOTE | 2020-11-15 06:43 | NUR ---
MS RN NOTES FAIRLY RESTED,STILL REFUSING CARE,MOST OF THE MEDS.AFEBRILE,POSSIBLE D/C HOME TODAY.WILL ENDORSE TO DAY NURSE FOR CLARITA.
--- NOTE | 2020-11-15 07:04 | NUR ---
PSYCHIATRIC THERAPIST OPENING NOTES RECEIVED PT RESTING COMFORTABLY IN BED AT THIS TIME. PT AOX2-3. SERBIAN SPEAKING. PT ABLE TO MAKE NEEDS KNOWN. NO SOB NOTED, NO S/S OF ANY ACUTE DISTRESS NOTED. NO C/O PAIN AT THIS TIME. RESPIRATIONS ARE EVEN AND UNLABORED. PT STABLE ON RA. IV ACCESS NOTED IN R-HAND G#20, INTACT, PATENT AND FLUSHING WELL. SAFETY PRECAUTION IN PLACE AND MAINTAINED AT ALL TIMES. BED IN LOWEST LOCKED POSITION, HOB ELEVATED, SIDE RAILS UP X 2, CALL LIGHT AND TABLE WITHIN REACH. WILL CONTINUE TO MONITOR
[2020-11-15 09:00] VITALS: BP 141/72
[2020-11-15] MEDS: DOCUSATE SODIUM 250 MG CAPSULE PO SCH (09:00)
[2020-11-15] MEDS: FERROUS SULFATE (325 MG) 325 MG/TAB TABLET PO SCH (09:00)
[2020-11-15] MEDS: AMLODIPINE BESYLATE 10 MG TABLET PO SCH (09:00)
[2020-11-15] MEDS: HYDROCHLOROTHIAZIDE 25 MG TABLET PO SCH (09:00)
[2020-11-15] MEDS: ESCITALOPRAM OXALATE (10 MG) 10 MG TABLET PO SCH (09:00)
[2020-11-15] MEDS: DONEPEZIL 5 MG TABLET PO SCH (09:00)
[2020-11-15] MEDS: LOSARTAN POTASSIUM 50 MG TABLET PO SCH (09:00)
[2020-11-15] MEDS: FENOFIBRATE NANOCRYS (145 MG) 145 MG TABLET PO SCH (09:00)
[2020-11-15] MEDS: DEXAMETHASONE SOD PHOSPHATE 10 MG/ML VIAL IV SCH (09:00)
[2020-11-15] MEDS: ISOSORBIDE MONONITRATE (30MG) 30 MG TAB.SR.24H PO SCH (09:00)
--- NOTE | 2020-11-15 10:00 | NUR ---
PT REFUSED ALL AM MEDICATIONS. PT EDUCATION ON BENEFITS AND RISKS OF DENYING TREATMENT PROVIDED. SOON, CHARGE NURSE AND RAHUL GRAVES AWARE. WILL CONTINUE WITH PLAN OF CARE
--- NOTE | 2020-11-15 11:20 | NUR ---
CADEN, CASE MANAGEMENT INFORMED NURSE THAT PT's DAUGHTER WAS PICKING UP PT AMA. SOON, CHARGE NURSE AND RAHUL GRAVES AWARE.
--- NOTE | 2020-11-15 11:40 | NUR ---
STONE PLANERSCIENCE PROFESSOR NOTES PT DISCHARGED HOME AT THIS TIME AMA. PT EDUCATION PROVIDED ON BENEFITS AND RISKS OF LEAVING WITHOUT COMPLETING TREATMENT. PT VERBALIZE UNDERSTANDING AND SIGNED AMA FORM. ALL BELONGINGS ACCOUNTED FOR, SIGNED BY PATIENT AND FILED IN CHART. IV ACCESS REMOVED, PRESSURE APPLIED, SECURE WITH GAUZE AND TAPE. NO S/O BLEEDING NOTED. PT TRANSPORTED BY WHEELCHAIR BY KEITH DYSON. PT PICKED UP BY DAUGHTER. SOON, CHARGE NURSE AND RAHUL GRAVES AWARE.
== END 2020-11-15 11:40 | disposition left against medical advice (07) | DRG 177 ==
LOC: ER 10:38 → TELE1 14:15 → MEDSG1 11-07 15:03
PROVIDERS: ADMIT Nurse Practitioner Acute Care; ATTEND Nurse Practitioner Acute Care
PROC: XW033E5 Introduction of Remdesivir Anti-infective into Peripheral Vein, Percutaneous Approach, New Technology Group 5 (ICD-10-PCS; principal; 2020-11-12)
DX: U07.1 COVID-19 (principal); N17.0 Acute kidney failure with tubular necrosis; J12.89 Other viral pneumonia; J96.01 Acute respiratory failure with hypoxia; J15.9 Unspecified bacterial pneumonia; E44.1 Mild protein-calorie malnutrition; D68.69 Other thrombophilia; E88.09 Other disorders of plasma-protein metabolism, not elsewhere classified; Z68.27 Body mass index [BMI] 27.0-27.9, adult; N18.9 Chronic kidney disease, unspecified; I12.9 Hypertensive chronic kidney disease with stage 1 through stage 4 chronic kidney disease, or unspecified chronic kidney disease; R73.9 Hyperglycemia, unspecified
CPT/HCPCS: 36415; 71045-TC; 80048-TC; 80053-TC; 80061-TC; 80076-TC; 80202-TC; 82550-TC; 82728-TC; 83605-TC; 83615-TC; 83735-TC; 83970; 84100-TC; 84155; 84165; 84443-TC; 84484-TC; 85025-TC; 85378-TC; 85385-TC; 85610-TC; 85730-TC; 86140-TC; 86850-TC; 87040-TC; 87081-TC; 97112-TC; 97116-TC; 97530-TC; A4216; C9803; G0378; J0696; J1100; J1644; J2405; J2543; J3370; J7030; J7050; J7060; U0003